=== PATIENT | female | born 1955 | race American Indian/Alaskan Native ===

== ENCOUNTER 2017-11-06 16:10 | Emergency (ER) | payer BC ==
[2017-11-06 16:15] VITALS: BP 142/80
--- NOTE | 2017-11-06 17:51 | Emergency Department Report ---
- General Chief Complaint: Upper Respiratory Infection Stated Complaint: SINUS/PAIN Time Seen by Provider: 11/06/17 17:41 Source: patient Mode of arrival: Ambulatory Limitations: No Limitations - History of Present Illness Initial Comments: This is a 62-year-old female who is not known to this provider previously, presenting to the ER with a complaint of nasal congestion, facial fullness, and green mucus discharge. She has facial fullness, but otherwise denies pain. Her symptoms have been going on for the past 3-4 days, do not radiate anywhere, and she denies exacerbating, relieving factors. MD Complaint: cough, sore throat, rhinorrhea, nasal congestion, sinus pain -: Gradual, days(s) Severity: moderate Quality: dull Consistency: intermittent Improves With: nothing Worsens With: nothing Associated Symptoms: headache, rhinorrhea, nasal congestion, sore throat, cough , hoarseness. denies: fever, chills, myalgias, diaphoresis, stiff neck, chest pain, shortness of breath, abdominal pain, nausea, vomiting, diarrhea, dysuria, rash, confusion, right sweats, weight loss, epistaxis, ear pain, other - Related Data Previous Rx's Medication Instructions Recorded Last Taken Type Acetaminophen [Tylenol Arthritis] 650 mg PO Q6HR PRN #30 tablet.er 11/06/17 Unknown Rx Cetirizine HCl [ZyrTEC] 10 mg PO QDAY PRN #30 capsule 11/06/17 Unknown Rx Fluticasone [Flonase] 1 spray NS QDAY #1 bottle 11/06/17 Unknown Rx Allergies Allergy/AdvReac Type Severity Reaction Status Date / Time iodine Allergy Itching Verified 11/06/17 16:15 aspirin AdvReac Unknown Verified 11/06/17 16:15 ED Review of Systems ROS: Stated complaint: SINUS/PAIN Other details as noted in HPI Comment: All other systems reviewed and negative Constitutional: denies: fever Eyes: denies: vision change ENT: congestion. denies: epistaxis Respiratory: cough Cardiovascular: denies: chest pain Gastrointestinal: denies: abdominal pain Genitourinary: denies: dysuria Musculoskeletal: arthralgia Skin: denies: lesions Neurological: denies: weakness ED Past Medical Hx - Past Medical History Previous Medical History?: No - Surgical History Past Surgical History?: No - Social History Smoking Status: Never Smoker Substance Use Type: None - Medications Home Medications: Home Medications Medication Instructions Recorded Confirmed Last Taken Type Acetaminophen [Tylenol Arthritis] 650 mg PO Q6HR PRN #30 tablet.er 11/06/17 Unknown Rx Cetirizine HCl [ZyrTEC] 10 mg PO QDAY PRN #30 capsule 11/06/17 Unknown Rx Fluticasone [Flonase] 1 spray NS QDAY #1 bottle 11/06/17 Unknown Rx ED Physical Exam - General Limitations: No Limitations General appearance: alert, in no apparent distress - Head Head exam: Present: atraumatic, normocephalic - Eye Eye exam: Present: normal appearance, PERRL, EOMI. Absent: nystagmus - ENT ENT exam: Present: normal exam, normal orophraynx, mucous membranes moist, TM's normal bilaterally, normal external ear exam (there is no nasal sinus tenderness. There is no maxillary sinus tenderness. There is no frontal sinus tenderness) - Neck Neck exam: Present: normal inspection, full ROM - Respiratory Respiratory exam: Present: normal lung sounds bilaterally. Absent: respiratory distress - Cardiovascular Cardiovascular Exam: Present: regular rate, normal rhythm, normal heart sounds. Absent: systolic murmur, diastolic murmur, rubs, gallop - GI/Abdominal GI/Abdominal exam: Present: soft, normal bowel sounds. Absent: distended, tenderness, guarding, rigid - Extremities Exam Extremities exam: Present: normal inspection, full ROM, other (2+ pulses noted in the bilateral upper extremities) - Back Exam Back exam: Present: full ROM. Absent: tenderness, CVA tenderness (R), paraspinal tenderness, vertebral tenderness - Neurological Exam Neurological exam: Present: alert, oriented X3, CN II-XII intact, normal gait, other (Extraocular movements intact. Tongue midline. No facial droop. Facial sensation intact to light touch in the V1, V2, V3 distribution bilaterally. 5 and 5 strength in 4 extremities.. Sensation is intact to light touch in 4 extremities.). Absent: motor sensory deficit - Psychiatric Psychiatric exam: Present: normal affect, normal mood - Skin Skin exam: Present: warm, dry, intact, normal color. Absent: rash ED Course Vital Signs 11/06/17 16:12 Temperature 98.2 F Pulse Rate 81 Respiratory 18 Rate Blood Pressure 142/80 O2 Sat by Pulse 98 Oximetry ED Medical Decision Making - Medical Decision Making Vital Signs 11/06/17 16:12 Temperature 98.2 F Pulse Rate 81 Respiratory 18 Rate Blood Pressure 142/80 O2 Sat by Pulse 98 Oximetry Differential diagnosis, including but not limited to: Sinusitis, seasonal allergies, viral syndrome Assessment and plan: 62-year-old female with nasal congestion and sinus fullness , cough, mucus production without sinus tenderness. Symptoms present for 5 days. Does not require antibiotic therapy at this time. Patient will be discharged with supportive care. Critical care attestation.: If time is entered above; I have spent that time in minutes in the direct care of this critically ill patient, excluding procedure time. ED Disposition Clinical Impression: Congestion of upper airway Disposition: DC-01 TO HOME OR SELFCARE Is pt being admited?: No Does the pt Need Aspirin: No Condition: Good Instructions: Allergic Rhinitis (ED) Additional Instructions: Take the medications as needed/directed. Follow up with a primary care doctor within the next month. Return to the ER right away with new, worsening or different symptoms, fevers, chills, lethargy, projectile vomiting, change in mental status, inability to tolerate liquid feeds. Prescriptions: Acetaminophen [Tylenol Arthritis] 650 mg PO Q6HR PRN #30 tablet.er PRN Reason: Pain Cetirizine HCl [ZyrTEC] 10 mg PO QDAY PRN #30 capsule PRN Reason: Allergy Symptoms Fluticasone [Flonase] 1 spray NS QDAY #1 bottle Referrals: PRIMARY CARE, [Primary Care Provider] - 3-5 Days JADYN CAMPOS MD [Staff Physician] - 3-5 Days RODOLFO MAGALLON MD [Staff Physician] - 3-5 Days
== END 2017-11-06 18:07 | disposition home or self-care (01) ==
LOC: ED 16:10
DX: R09.81 Nasal congestion (principal); R05 Cough; J34.89 Other specified disorders of nose and nasal sinuses; R51 Headache
CPT/HCPCS: 99282

== ENCOUNTER 2019-01-24 08:42 | Outpatient (CLI) | payer BC ==
[2019-01-24 10:06] LABS: Alanine Aminotransferase 20 units/L (7-56); Albumin 4.1 g/dL (3.9-5); BUN/Creatinine Ratio 20; Blood Urea Nitrogen 16 mg/dL (7-17); Calcium 9.1 mg/dL (8.4-10.2); Hemolysis Index 0
[2019-01-24 10:16] LABS: Hematocrit 37.9 % (30.3-42.9); Hemoglobin 12.5 gm/dl (10.1-14.3); Mean Corpuscular HGB Conc 33 % (30-34); Mean Corpuscular Volume 84 fl (79-97); Platelet Count 237 K/mm3 (140-440); Red Blood Count 4.52 M/mm3 (3.65-5.03); Red Cell Distribution Width 15.3 % (13.2-15.2)
[2019-01-27 11:23] LABS: Vitamin D, 25-OH, D2 5 ng/mL
== END 2019-01-24 08:43 | disposition home or self-care (01) ==
LOC: CARD 08:42
PROVIDERS: ATTEND Family Medicine
DX: Z01.818 Encounter for other preprocedural examination (principal); Z98.84 Bariatric surgery status
CPT/HCPCS: 36415; 80053; 82306; 82607; 85027; 93005; 93010

== ENCOUNTER 2019-02-20 07:33 | Outpatient (CLI) | payer BC ==
--- NOTE | 2019-02-20 08:47 | Cat Scan Report ---
CT LEFT SHOULDER WITHOUT CONTRAST INDICATION : PAIN IN SHOULDER. Osteoarthritis. TECHNIQUE: Axial imaging performed through the left shoulder without the use of contrast. All CT sc ans at this location are performed using CT dose reduction for ALARA by means of automated exposure c ontrol. COMPARISON: None FINDINGS: Bone mineralization appears normal. No evidence for fracture, dislocation, ligamentous inju ry or bone lesion. Moderate to severe osteoarthritic changes are identified at the left glenohumeral joint. There is advanced joint space narrowing, articular surface sclerosis and multiple small subcho ndral cysts. A 1.2 cm degenerative cyst is noted in the lateral humeral head. Minimal osteoarthritic changes are identified at the acromioclavicular joint. Small joint effusion is suspected at the left glenohumeral joint. The soft tissues are within normal limits otherwise noncontrast CT. No discrete r otator cuff abnormality. IMPRESSION: Osteoarthritic changes as described above. Small left shoulder joint effusion. Signer Name: Jaydon Taylor Jr, MD Signed: 02/20/2019 8:43 AM Workstation Name: [id number]
== END 2019-02-20 07:34 | disposition home or self-care (01) ==
LOC: CT 07:33
PROVIDERS: ATTEND Family Medicine
DX: M19.012 Primary osteoarthritis, left shoulder (principal); M25.412 Effusion, left shoulder; Z88.6 Allergy status to analgesic agent; Z91.041 Radiographic dye allergy status

== ENCOUNTER 2019-05-22 07:25 | Outpatient (CLI) | payer BC ==
--- NOTE | 2019-05-22 09:08 | Ultrasound Report ---
US thyroid scan INDICATION / CLINICAL INFORMATION: THYROID NODULE. COMPARISON: None available. FINDINGS: Right thyroid lobe is slightly inhomogeneous, with multiple small solid and complex nodules. The left lobe is enlarged, with a complex 4.8 cm x 2.8 cm x 3.0 cm nodule occupying much of this left lobe. IMPRESSION: 1. Dominant left thyroid nodule. Biopsy should certainly be considered. Signer Name: Aristeo Mascorro MD Signed: 05/22/2019 9:03 AM Workstation Name: [id number]
== END 2019-05-22 07:26 | disposition home or self-care (01) ==
LOC: US 07:25
DX: E04.2 Nontoxic multinodular goiter (principal); E04.9 Nontoxic goiter, unspecified
CPT/HCPCS: 76536

== ENCOUNTER 2019-06-05 03:37 | Emergency (ER) | payer BC ==
--- NOTE | 2019-06-05 04:28 | XRay Report ---
LEFT KNEE 3 VIEWS INDICATION / CLINICAL INFORMATION: Fell off ladder on left knee. COMPARISON: None available. FINDINGS: A joint effusion is present. Calcifications are seen in the popliteal fossa. There is a questionable lateral tibial plateau fracture present. CT of the left knee may be helpful for further evaluation if clinically indicated. Signer Name: Ludwin Jimenez MD FACR Signed: 06/05/2019 4:23 AM Workstation Name: [id number]
[2019-06-05] MEDS ORDERED: HYDROcodone/ACETAMINOPHEN 7.5-325MG TAB PO ONE (04:47)
--- NOTE | 2019-06-05 05:31 | Emergency Department Report ---
ED Lower Extremity HPI - General Chief Complaint: Extremity Injury, Lower Stated Complaint: FALL/PAIN Time Seen by Provider: 06/05/19 04:06 Source: patient Mode of arrival: Ambulatory Limitations: No Limitations - History of Present Illness Initial Comments: pt is a 64-year-old female presents emergency room with complaints of a left knee injury that occurred around 8 PM. She states that she was hanging up curtains on a ladder and slipped off the ladder. She states that she was approximately on the third ladder rung. She states she landed directly on her left knee. She states that she has not been able to bear weight secondary to pain. She denies ever injuring in the past. She denies any numbness or weakness. She has a past medical history of G6PD deficiency. - Related Data Previous Rx's Medication Instructions Recorded Last Taken Type Acetaminophen [Tylenol Arthritis] 650 mg PO Q6HR PRN #30 tablet.er 11/06/17 Unknown Rx Cetirizine HCl [ZyrTEC 10mg cap] 10 mg PO QDAY PRN #30 capsule 11/06/17 Unknown Rx Fluticasone [Flonase] 1 spray NS QDAY #1 bottle 11/06/17 Unknown Rx HYDROcodone/APAP 5-325 [[place] 1 each PO Q6HR PRN #12 tablet 06/05/19 Unknown Rx 5/325] Allergies Allergy/AdvReac Type Severity Reaction Status Date / Time iodine Allergy Itching Verified 11/06/17 16:15 Sulfa (Sulfonamide Allergy Unknown Verified 06/05/19 03:48 Antibiotics) aspirin AdvReac Unknown Verified 11/06/17 16:15 ED Review of Systems ROS: Stated complaint: FALL/PAIN Other details as noted in HPI Comment: All other systems reviewed and negative ED Past Medical Hx - Past Medical History Previous Medical History?: Yes Additional medical history: GC6PD defiency - Surgical History Past Surgical History?: Yes Additional Surgical History: Bilateral Shoulder replacements - Social History Smoking Status: Never Smoker - Medications Home Medications: Home Medications Medication Instructions Recorded Confirmed Last Taken Type Acetaminophen [Tylenol Arthritis] 650 mg PO Q6HR PRN #30 tablet.er 11/06/17 Unknown Rx Cetirizine HCl [ZyrTEC 10mg cap] 10 mg PO QDAY PRN #30 capsule 11/06/17 Unknown Rx Fluticasone [Flonase] 1 spray NS QDAY #1 bottle 11/06/17 Unknown Rx HYDROcodone/APAP 5-325 [[place] 1 each PO Q6HR PRN #12 tablet 06/05/19 Unknown Rx 5/325] ED Physical Exam - General Limitations: No Limitations General appearance: alert, in no apparent distress - Head Head exam: Present: atraumatic, normocephalic - Eye Eye exam: Present: normal appearance - ENT ENT exam: Present: mucous membranes moist - Extremities Exam Extremities exam: Present: other (ttp of the right anterior knee, edema present to right knee, decreased flexion secondary to pain, there is slight laxity with anterior drawer testing, no obvious deformity, neurovascularly intact) - Neurological Exam Neurological exam: Present: alert, oriented X3 - Psychiatric Psychiatric exam: Present: normal affect, normal mood - Skin Skin exam: Present: warm, dry, intact ED Course Vital Signs 06/05/19 03:51 Temperature 97.3 F L Pulse Rate 88 Respiratory 18 Rate Blood Pressure 150/73 O2 Sat by Pulse 100 Oximetry ED Lower Extremity MDM - Radiology Data Radiology results: report reviewed X-ray left knee Dictated by Ludwin Jimenez MD Joint effusion is present. Calcifications are seen in the popliteal fossa. There is questionable lateral tibial plateau fracture present. CT of the left knee may be helpful for further evaluation if clinically warranted - Medical Decision Making pt is a 64-year-old female presents emergency room with complaints of a left knee injury that occurred around 8 PM. She states that she was hanging up curtains on a ladder and slipped off the ladder. She states that she was approximately on the third ladder rung. She states she landed directly on her left knee. She states that she has not been able to bear weight secondary to pain. She denies ever injuring in the past. She denies any numbness or weakness. She has a past medical history of G6PD deficiency. on exam: ttp of the right anterior knee, edema present to right knee, decreased flexion secondary to pain, there is slight laxity with anterior drawer testing, no obvious deformity, neurovascularly intact. XR left knee: Joint effusion is present. Calcifications are seen in the popliteal fossa. There is questionable lateral tibial plateau fracture present. CT of the left knee may be helpful for further evaluation if clinically warranted. Discussed findings with patient. Pt placed in knee immobilizer and given crutches. given prescription for norco. pt states that she has a ride home with her daughter, given pain medication while in the ED. advised to please take medication as prescribed as needed. May use ice for 15 minutes at a time, rest, elevation of the leg. Do not bear weight on the leg until you have been cleared by an orthopedic doctor. Please follow-up with an orthopedic doctor it is very important that you follow-up. Return to the emergency room for any new or worsening symptoms. - Differential Diagnosis strain, sprain, fx, dislocation Critical care attestation.: If time is entered above; I have spent that time in minutes in the direct care of this critically ill patient, excluding procedure time. ED Disposition Clinical Impression: Right knee injury Qualifiers: Encounter type: initial encounter Qualified Code(s): S89.91XA - Unspecified injury of right lower leg, initial encounter Knee effusion Qualifiers: Laterality: left Qualified Code(s): M25.462 - Effusion, left knee Tibial plateau fracture, left Qualifiers: Encounter type: initial encounter Fracture type: closed Qualified Code(s): S82.142A - Displaced bicondylar fracture of left tibia, initial encounter for closed fracture Disposition: - TO HOME OR SELFCARE Is pt being admited?: No Does the pt Need Aspirin: No Condition: Stable Instructions: Crutch Instructions (ED), Knee Effusion (ED), SUSPECTED FRACTURE (ED), Knee Immobilizer (ED) Additional Instructions: Please take medication as prescribed as needed. May use ice for 15 minutes at a time, rest, elevation of the leg. Do not bear weight on the leg until you have been cleared by an orthopedic doctor. Please follow-up with an orthopedic doctor it is very important that you follow-up. Return to the emergency room for any new or worsening symptoms. Prescriptions: HYDROcodone/APAP 5-325 [Imbler 5/325] 1 each PO Q6HR PRN #12 tablet PRN Reason: Pain , Severe (7-10) Referrals: JAVED BARBER MD [Staff Physician] - 2-3 Days Forms: Work/School Release Form(ED) Time of Disposition: 05:30 Print Language: TURKISH
[2019-06-05 07:09] VITALS: BP 147/73
== END 2019-06-05 06:09 | disposition home or self-care (01) ==
LOC: ED 03:37
DX: S82.142A Displaced bicondylar fracture of left tibia, initial encounter for closed fracture (principal); S89.91XA Unspecified injury of right lower leg, initial encounter; M25.462 Effusion, left knee; Z79.899 Other long term (current) drug therapy; Z98.890 Other specified postprocedural states; Z88.2 Allergy status to sulfonamides; Z88.6 Allergy status to analgesic agent; Z91.041 Radiographic dye allergy status; W01.0XXA Fall on same level from slipping, tripping and stumbling without subsequent striking against object, initial encounter; Y93.89 Activity, other specified; Y92.89 Other specified places as the place of occurrence of the external cause; Y99.8 Other external cause status
CPT/HCPCS: 99283

== ENCOUNTER 2019-06-05 11:49 | Emergency (ER) | payer BC ==
--- NOTE | 2019-06-05 12:04 | Emergency Department Report ---
ED Lower Extremity HPI - General Stated Complaint: FALL OF LADDER Time Seen by Provider: 06/05/19 12:01 - History of Present Illness Initial Comments: This is a 64-year-old female nontoxic, well nourished in appearance, no acute signs of distress presents to the ED with c/o of knee pain. Patient was seen yesterday and had xrays with possible fracture. Patient received [place] and knee immolbizer. Stated has not filled her pain medications. Patient denies any new injuries or trauma. Denies any fever, chills, nausea, vomiting, headache, stiff neck, chest pain or shortness of breath. Patient denies any numbness or tingling. Allergies iodine and sulfa and aspirin. MD Complaint: knee injury -: days(s) Injury: Knee: Left Severity: moderate Severity scale (0 -10): 8 Improves With: immobilization Worsens With: weight bearing, movement, palpation Context: fall Associated Symptoms: swelling, unable to bear weight. denies: snap/pop sensation, numbness, tingling, able to partially bear weight, ambulatory - Related Data Previous Rx's Medication Instructions Recorded Last Taken Type Acetaminophen [Tylenol Arthritis] 650 mg PO Q6HR PRN #30 tablet.er 11/06/17 Unknown Rx Cetirizine HCl [ZyrTEC 10mg cap] 10 mg PO QDAY PRN #30 capsule 11/06/17 Unknown Rx Fluticasone [Flonase] 1 spray NS QDAY #1 bottle 11/06/17 Unknown Rx HYDROcodone/APAP 5-325 [[place] 1 each PO Q6HR PRN #12 tablet 06/05/19 Unknown Rx 5/325] Allergies Allergy/AdvReac Type Severity Reaction Status Date / Time iodine Allergy Itching Verified 11/06/17 16:15 Sulfa (Sulfonamide Allergy Unknown Verified 06/05/19 03:48 Antibiotics) aspirin AdvReac Unknown Verified 11/06/17 16:15 ED Review of Systems ROS: Stated complaint: FALL OF LADDER Other details as noted in HPI Constitutional: denies: chills, fever Eyes: denies: eye pain, eye discharge, vision change ENT: denies: ear pain, throat pain Respiratory: denies: cough, shortness of breath, wheezing Cardiovascular: denies: chest pain, palpitations Endocrine: no symptoms reported Gastrointestinal: denies: abdominal pain, nausea, diarrhea Genitourinary: denies: urgency, dysuria, discharge Musculoskeletal: denies: back pain, joint swelling, arthralgia Skin: denies: rash, lesions Neurological: denies: headache, weakness, paresthesias Psychiatric: denies: anxiety, depression Hematological/Lymphatic: denies: easy bleeding, easy bruising ED Past Medical Hx - Past Medical History Additional medical history: GC6PD defiency - Surgical History Additional Surgical History: Bilateral Shoulder replacements - Social History Smoking Status: Never Smoker - Medications Home Medications: Home Medications Medication Instructions Recorded Confirmed Last Taken Type Acetaminophen [Tylenol Arthritis] 650 mg PO Q6HR PRN #30 tablet.er 11/06/17 Unknown Rx Cetirizine HCl [ZyrTEC 10mg cap] 10 mg PO QDAY PRN #30 capsule 11/06/17 Unknown Rx Fluticasone [Flonase] 1 spray NS QDAY #1 bottle 11/06/17 Unknown Rx HYDROcodone/APAP 5-325 [[place] 1 each PO Q6HR PRN #12 tablet 06/05/19 Unknown Rx 5/325] ED Physical Exam - General General appearance: alert, in no apparent distress - Head Head exam: Present: atraumatic, normocephalic - Neck Neck exam: Present: normal inspection, full ROM. Absent: tenderness, meningismus, lymphadenopathy - Extremities Exam Extremities exam: Present: normal inspection, full ROM, tenderness, normal capillary refill. Absent: joint swelling, calf tenderness - Expanded Lower Extremity Exam Left Hip exam: Present: normal inspection, full ROM. Absent: tenderness, swelling Upper Leg exam: Present: normal inspection, full ROM. Absent: tenderness, swelling Knee exam: Present: normal inspection, full ROM, tenderness, swelling, effusion, full knee extension. Absent: abrasion, laceration, ecchymosis, deformity, crepidus, dislocation, erythema, pain w/ pronation/supination, pain/laxity with valgus, pain/laxity with varus Lower Leg exam: Present: normal inspection, full ROM. Absent: tenderness, swelling Ankle exam: Present: normal inspection, full ROM. Absent: tenderness, swelling Foot/Toe exam: Present: normal inspection, full ROM. Absent: tenderness, swelling Neuro vascular tendon exam: Present: no vascular compromise Gait: Positive: unable to bear weight - Back Exam Back exam: Present: normal inspection, full ROM. Absent: tenderness, CVA tenderness (R), CVA tenderness (L), muscle spasm, paraspinal tenderness, vertebral tenderness, rash noted - Neurological Exam Neurological exam: Present: alert, oriented X3 - Psychiatric Psychiatric exam: Present: normal affect, normal mood - Skin Skin exam: Present: warm, dry, intact, normal color. Absent: rash ED Course - Reevaluation(s) Reevaluation #1: 06/05/19 12:08 Patient is speaking in full sentences with no signs of distress noted. ED Lower Extremity MDM - Medical Decision Making This is a 64-year-old female that presents with pain from a fracture. Patient is stable and was examined by me. Xrays has been reviewed from yesterday. Patient does not present with a new injury. Was instructed to fill her [place] medications that was given yesterday. Also has a knee immbolizer. Patient was instructed to Follow-up with a orthopedic doctor in 3-5 days or if symptoms worsen and continue return to emergency room as soon as possible. At time of discharge, the patient does not seem toxic or ill in appearance. No acute signs of distress noted. Patient agrees to discharge treatment plan of care. No further questions noted by the patient. Critical care attestation.: If time is entered above; I have spent that time in minutes in the direct care of this critically ill patient, excluding procedure time. ED Disposition Clinical Impression: Knee fracture, left Disposition: Z-07 MED SCREENING EXAM-LEFT Is pt being admited?: No Does the pt Need Aspirin: No Condition: Stable Instructions: Patellar Fracture (ED) Additional Instructions: Follow-up with a orthopedic doctor in 3-5 days or if symptoms worsen and continue return to emergency room as soon as possible. Fill your medications that was prescribed to you during your previous visit. Referrals: PRIMARY CAREMD [Referring] - 3-5 Days JAVED BARBER MD [Staff Physician] - 3-5 Days
[2019-06-05 12:06] VITALS: BP 150/72
== END 2019-06-05 12:30 | disposition left against medical advice (07) ==
LOC: ED 11:49
DX: S82.002A Unspecified fracture of left patella, initial encounter for closed fracture (principal); Z79.899 Other long term (current) drug therapy; Z88.2 Allergy status to sulfonamides; Z88.6 Allergy status to analgesic agent; X58.XXXA Exposure to other specified factors, initial encounter; Y93.89 Activity, other specified; Y92.89 Other specified places as the place of occurrence of the external cause; Y99.8 Other external cause status
CPT/HCPCS: 99281

== ENCOUNTER 2020-02-23 12:40 | Emergency (ER) | payer BC ==
[2020-02-23] MEDS ORDERED: LIDOCAINE (1%) 10 MG/1 ML VIAL 20 ML MDV INFILTRATI ONE (13:17)
--- NOTE | 2020-02-23 14:00 | Emergency Department Report ---
Upper Extremity - HPI Chief Complaint: Wound/Laceration Stated Complaint: FINGER LAC Time Seen by Provider: 02/23/20 13:07 Upper Extremity: Right Index Finger (Laceration) Occurred When: Today Mechanism: Other (accidentally cut finger with icebox worker) Severity: mild Symptoms: Yes Pain with Movement, Yes Numbness, Yes Laceration or Abrasion, No Deformity, No Limited Range of Movement, No Weakness, No Swelling, No Bruising/Ecchymosis Other History: 64-year-old female presents to the ER today complaint of laceration to her right index finger. Patient states that today around 10 AM, she was cleaning her mirror when she excellently cut her finger with a icebox worker which was sticking out of her medical box. She reports bleeding, and mild numbness and pain to the finger. She is up-to-date on her tetanus. ED Review of Systems ROS: Stated complaint: FINGER LAC Other details as noted in HPI Comment: All other systems reviewed and negative Constitutional: denies: chills, fever Skin: other (Laceration right index finger) Neurological: numbness ED Past Medical Hx - Past Medical History Previous Medical History?: Yes Hx Hypertension: Yes Hx Arthritis: Yes Additional medical history: GC6PD defiency - Surgical History Past Surgical History?: Yes Additional Surgical History: Bilateral Shoulder replacements - Social History Smoking Status: Never Smoker - Medications Home Medications: Home Medications Medication Instructions Recorded Confirmed Last Taken Type Acetaminophen [Tylenol Arthritis] 650 mg PO Q6HR PRN #30 tablet.er 11/06/17 Unknown Rx Cetirizine HCl [ZyrTEC 10mg cap] 10 mg PO QDAY PRN #30 capsule 11/06/17 Unknown Rx Fluticasone [Flonase] 1 spray NS QDAY #1 bottle 11/06/17 Unknown Rx HYDROcodone/APAP 5-325 [[place] 1 each PO Q6HR PRN #12 tablet 06/05/19 Unknown Rx 5/325] Upper Extremity Exam - Exam General: Vital signs noted. No distress. Alert and acting appropriately. Head and Torso: No HEENT Abnormality, No Chest/Lungs Abnormality Hand: Yes Digit Tenderness (Patient has a superficial laceration to the volar aspect of the right index finger about the level of the PIP joint. There is no tendon, or bony injury. She has full flexion and extension of the PIP joint.) CMS Exam: Yes Broken Skin (Superficial laceration to the volar aspect of the right index finger.), Yes Normal Distal Pulses, Yes Normal Capillary Refill, No Normal Distal Sensation (Slight decrease numbness distal to the laceration on the volar aspect. The patient did have a tight compression dressing on that finger.) - Laceration /Wound Repair Right Volar Finger Wound Location: upper extremity (Right index finger) Wound's Depth, Shape: superficial Wound Explored: clean Irrigated w/ Saline (ccs): 20 Betadine Prep?: Yes Anesthesia: 1% Lidocaine Volume Anesthetic (ccs): 5 (Digital block of the right index finger, only volar approach) Wound Repaired With: sutures Suture Size/Type: 4:0, nylon Number of Sutures: 4 Layer Closure?: No Sterile Dressing Applied?: Yes Progress: Patient tolerated procedure well. No complication. Antibiotic dressing applied. Critical care attestation.: If time is entered above; I have spent that time in minutes in the direct care of this critically ill patient, excluding procedure time. ED Disposition Clinical Impression: Finger laceration Disposition: TO HOME OR SELFCARE Is pt being admited?: No Does the pt Need Aspirin: No Condition: Stable Instructions: Laceration Care, Adult, [id number] Additional Instructions: Keep the wound clean daily with soap and water. Do not use peroxide or alcohol. Wash wound briefly. Apply small amount of Neosporin after each cleaning. Sutures will need to be removed in about 10 days. You can take Tylenol or ibuprofen. He can return here to the ER or follow-up with your PCP for suture removal. Return to the ER if any signs and symptoms of infection such as pus drainage increasing redness or pain. Referrals: AARON ZAYAS MD [Staff Physician] - 3-5 Days Time of Disposition: 14:01
[2020-02-23 14:27] VITALS: BP 134/67
== END 2020-02-23 14:15 | disposition home or self-care (01) ==
LOC: ED 12:40
DX: S61.210A Laceration without foreign body of right index finger without damage to nail, initial encounter (principal); I10 Essential (primary) hypertension; M13.88 Other specified arthritis, other site; Z79.899 Other long term (current) drug therapy; Z88.2 Allergy status to sulfonamides; Z88.6 Allergy status to analgesic agent; Z91.09 Other allergy status, other than to drugs and biological substances; X58.XXXA Exposure to other specified factors, initial encounter; Y93.89 Activity, other specified; Y92.89 Other specified places as the place of occurrence of the external cause; Y99.8 Other external cause status
CPT/HCPCS: 99281

== ENCOUNTER 2020-07-25 08:51 | Outpatient (CLI) | payer BC ==
--- NOTE | 2020-07-25 10:29 | Ultrasound Report ---
ULTRASOUND THYROID INDICATION / CLINICAL INFORMATION: GOITER. COMPARISON: 05/22/2019 FINDINGS: RIGHT LOBE: Size (cm) = 6 x 1.5 x 1.3 LEFT LOBE: Size (cm) = 6.4 x 2.7 x 2.9 ISTHMUS: Thickness (cm) = 0.9 APPEARANCE: Normal. SMALL NODULES < 1 cm: None. NODULES >= 1 cm or SUSPICIOUS FEATURES (up to 4): - NODULE # 1 - Location: Right Upper - Maximum Size (cm): 1.2 - Significant Change (>= 20% in 2 dim. & inc. >= 2mm): Decreased from prior study, previously me asured 1.4 cm. - Composition: Solid = 2 points - Echogenicity: Hypoechoic = 2 points - Shape: [id number] = 0 points - Margin: Smooth = 0 points - Echogenic Foci: None = 0 points - Additional Echogenic Foci: None = 0 points - Additional Findings: None. - ACR TI-RADS Score / Category = 4 points / TI-RADS 4 - NODULE # 2 - Location: Isthmus - Maximum Size (cm): 1.7 - Significant Change (>= 20% in 2 dim. & inc. >= 2mm): No prior study - Composition: Solid = 2 points - Echogenicity: Hyperechoic or Isoechoic = 1 point - Shape: [id number]-[id number] = 0 points - Margin: Smooth = 0 points - Echogenic Foci: None = 0 points - Additional Echogenic Foci: None = 0 points - Additional Findings: None. - ACR TI-RADS Score / Category = 3 points / TI-RADS 3 - No additional suspicious thyroid nodules. - NODULE # 3 - Location: Occupying nearly the entirety of the left thyroid lobe. - Maximum Size (cm): 4.8 x 2.6 x 3.8 - Significant Change (>= 20% in 2 dim. & inc. >= 2mm): No significant change - Composition: Solid = 2 points - Echogenicity: Hyperechoic or Isoechoic = 1 point - Shape: [id number]-[id number] = 0 points - Margin: Smooth = 0 points - Echogenic Foci: None = 0 points - Additional Echogenic Foci: None = 0 points - Additional Findings: None. - ACR TI-RADS Score / Category = 3 points / TI-RADS 3 LYMPH NODES: No abnormal lymph nodes. PARATHYROID GLANDS: No abnormal parathyroid glands. ADDITIONAL FINDINGS: None. IMPRESSION: 1. Stable or decreased size of bilateral thyroid nodules, to include dominant 4.8 cm left thyroid no dule. 2. No new suspicious nodule. ACR TI-RADS Thyroid Nodule Recommendations TI-RADS 1 (0 pts) -- BENIGN. - No Fine Needle Aspirate biopsy (FNA) or follow-up. TI-RADS 2 (1-2 pts) -- NOT SUSPICIOUS. - No FNA or follow-up. TI-RADS 3 (3 pts) -- MILDLY SUSPICIOUS. - >= 2.5 cm: FNA. - 1.5-2.4 cm: Follow up at 1, 3, 5 years. - < 1.5 cm: No follow up. TI-RADS 4 (4-6 pts) -- MODERATELY SUSPICIOUS. - >= 1.5 cm: FNA. - 1.0-1.4 cm: Follow up at 1, 2, 3, 5 years. - < 1.0 cm: No follow up. TI-RADS 5 (7+ pts) -- HIGHLY SUSPICIOUS. - >= 1.0 cm: FNA. - 0.5-0.9 cm: Follow annually for 5 years. - 0.5 cm: No follow up. REFERENCE: ACR Thyroid Imaging, Reporting and Data System (TI-RADS): White Paper of the ACR TI-RADS C ommittee. J AM Kaleigh Radiol 2017;14:587-595. NOTE: Nodules < 1 cm do not typically require follow-up or FNA unless there are suspicious features. NOTE: Nodule size maximum dimension determines whether a given lesion should be biopsied or followed. NOTE: If multiple nodules meet criteria for FNA, only the two (2) most suspicious nodules should be b iopsied. In addition, FNA of any suspicious cervical nodes should be biopsied. NOTE: Predominantly Cystic nodules and Spongiform nodules, composed predominantly (>50%) of small cys tic spaces, are considered benign (TI-RADS 1) regardless of other criteria. Signer Name: Margarito Harris MD Signed: 07/25/2020 10:24 AM Workstation Name: [id number]
== END 2020-07-25 08:52 | disposition home or self-care (01) ==
LOC: US 08:51
PROVIDERS: ATTEND Surgery
DX: E04.9 Nontoxic goiter, unspecified (principal)
CPT/HCPCS: 76536

== ENCOUNTER 2021-05-22 07:18 | Outpatient (CLI) | payer BC ==
--- NOTE | 2021-05-22 10:09 | Ultrasound Report ---
ULTRASOUND THYROID INDICATION / CLINICAL INFORMATION: E04.9. Enlarged bilateral neck mass. COMPARISON: Thyroid ultrasound dated 07/25/2020. FINDINGS: RIGHT LOBE: Size (cm) = 6.9 x 2.7 x 1.6 LEFT LOBE: Size (cm) = 6.0 x 2.7 x 2.5 ISTHMUS: Thickness (cm) = 1.1 APPEARANCE: Heterogeneous. SMALL NODULES < 1 cm: A solid 9 mm hyperechoic/isoechoic nodule is noted medially along the upper sushma e of the right thyroid lobe. NODULES >= 1 cm or SUSPICIOUS FEATURES (up to 4): - NODULE # 1 - Location: Right Upper - Maximum Size (cm): 1.0 - Significant Change (>= 20% in 2 dim. & inc. >= 2mm): Slightly smaller, previously 1.2 cm. - Composition: Solid = 2 points - Echogenicity: Hypoechoic = 2 points - Shape: [id number]-efqw-hlpj = 0 points - Margin: Smooth = 0 points - Echogenic Foci: None = 0 points - Additional Echogenic Foci: None = 0 points - Additional Findings: None. - ACR TI-RADS Score / Category = 4 points / TI-RADS 4 - NODULE # 2 - Location: Isthmus - Maximum Size (cm): 2.0 - Significant Change (>= 20% in 2 dim. & inc. >= 2mm): Slightly larger, previously 1.7 cm. - Composition: Solid = 2 points - Echogenicity: Hyperechoic or Isoechoic = 1 point - Shape: [id number]-hvfl-hbkh = 0 points - Margin: Smooth = 0 points - Echogenic Foci: None = 0 points - Additional Echogenic Foci: None = 0 points - Additional Findings: None. - ACR TI-RADS Score / Category = 3 points / TI-RADS 3 - NODULE # 3 - Location: Occupying nearly the entire left thyroid lobe. - Maximum Size (cm): 4.1 - Significant Change (>= 20% in 2 dim. & inc. >= 2mm): The nodule has decreased in size, previou sly 4.8 cm. - Composition: Solid = 2 points - Echogenicity: Hyperechoic or Isoechoic = 1 point - Shape: [id number]-tlvf-ulxa = 0 points - Margin: Smooth = 0 points - Echogenic Foci: None = 0 points - Additional Echogenic Foci: None = 0 points - Additional Findings: None. - ACR TI-RADS Score / Category = 3 points / TI-RADS 3 - No additional suspicious thyroid nodules. LYMPH NODES: No abnormal lymph nodes. PARATHYROID GLANDS: No abnormal parathyroid glands. ADDITIONAL FINDINGS: None. IMPRESSION: 1. No new suspicious thyroid nodules. Slight interval increase/decrease in thyroid nodules detailed a piyush without other significant interval changes. 2. No additional abnormality. ACR TI-RADS Thyroid Nodule Recommendations TI-RADS 1 (0 pts) -- BENIGN. - No Fine Needle Aspirate biopsy (FNA) or follow-up. TI-RADS 2 (1-2 pts) -- NOT SUSPICIOUS. - No FNA or follow-up. TI-RADS 3 (3 pts) -- MILDLY SUSPICIOUS. - >= 2.5 cm: FNA. - 1.5-2.4 cm: Follow up at 1, 3, 5 years. - < 1.5 cm: No follow up. TI-RADS 4 (4-6 pts) -- MODERATELY SUSPICIOUS. - >= 1.5 cm: FNA. - 1.0-1.4 cm: Follow up at 1, 2, 3, 5 years. - < 1.0 cm: No follow up. TI-RADS 5 (7+ pts) -- HIGHLY SUSPICIOUS. - >= 1.0 cm: FNA. - 0.5-0.9 cm: Follow annually for 5 years. - 0.5 cm: No follow up. REFERENCE: ACR Thyroid Imaging, Reporting and Data System (TI-RADS): White Paper of the ACR TI-RADS C ommittee. J AM Kaleigh Radiol 2017;14:587-595. NOTE: Nodules < 1 cm do not typically require follow-up or FNA unless there are suspicious features. NOTE: Nodule size maximum dimension determines whether a given lesion should be biopsied or followed. NOTE: If multiple nodules meet criteria for FNA, only the two (2) most suspicious nodules should be b iopsied. In addition, FNA of any suspicious cervical nodes should be biopsied. NOTE: Predominantly Cystic nodules and Spongiform nodules, composed predominantly (>50%) of small cys tic spaces, are considered benign (TI-RADS 1) regardless of other criteria. Signer Name: Fco Mock MD Signed: 05/22/2021 10:04 AM Workstation Name: [email or web address]
== END 2021-05-22 07:19 | disposition home or self-care (01) ==
LOC: US 07:18
PROVIDERS: ATTEND Surgery
DX: E04.2 Nontoxic multinodular goiter (principal); E04.9 Nontoxic goiter, unspecified
CPT/HCPCS: 76536